=== PATIENT | female | born 1995 | race Caucasian/White ===

== ENCOUNTER 2017-07-05 14:33 | Emergency (ER) | payer BC, OTHER ==
[2017-07-05 15:15] VITALS: BP 127/84
--- NOTE | 2017-07-05 15:32 | UC ---
Complaint Female HPI - HPI Summary HPI Summary: Urinary frequency for about a week. Old rx for bactrim was taken for 6-7 days and it worked but then symptoms returned. She denies vaginal discharge, inflammation, or pain with intercourse. - History Of Current Complaint Chief Complaint: [facility] Stated Complaint: URINARY COMPLAINT Time Seen by Provider: 07/05/17 15:13 Hx Obtained From: Patient Hx Last Menstrual Period: 06/08/17 Onset/Duration: Gradual Onset, Lasting Days Timing: Constant, Lasting Days Severity Initially: Moderate Severity Currently: Moderate Pain Intensity: 0 Character: Cramping Aggravating Factor(s): Urination Alleviating Factor(s): Nothing Associated Signs And Symptoms: Positive: Negative - Allergies/Home Medications Allergies/Adverse Reactions: Allergies Allergy/AdvReac Type Severity Reaction Status Date / Time No Known Allergies Allergy Unverified 07/05/17 15:12 Home Medications: Home Medications Nuva Ring 1 VAGINAL MONTHLY 07/05/17 [History] PMH/Surg Hx/FS Hx/Imm Hx Previously Healthy: No - uti last time was 2 yrs ago. - Surgical History Surgical History: None - Family History Known Family History: Positive: Other - no gu related history. - Social History Alcohol Use: Occasionally Substance Use Type: None Smoking Status (MU): Never Smoked Tobacco Review of Systems Genitourinary: Frequency All Other Systems Reviewed And Are Negative: Yes Physical Exam Triage Information Reviewed: Yes Appearance: Well-Appearing, No Pain Distress, Well-Nourished Vital Signs: Initial Vital Signs Temp 98.7 F 07/05/17 15:07 Pulse 79 07/05/17 15:07 Resp 14 07/05/17 15:07 BP 127/84 07/05/17 15:07 Pulse Ox 100 07/05/17 15:07 Vital Signs Reviewed: Yes Eyes: Positive: Conjunctiva Clear ENT: Positive: Normal ENT inspection Neck: Positive: Supple, Nontender, No Lymphadenopathy Respiratory: Positive: Normal breath sounds, No respiratory distress, No accessory muscle use. Negative: Respiratory distress, Decreased breath sounds, Accessory muscle use, Crackles, Rhonchi, Stridor Cardiovascular: Positive: No Murmur, Pulses Normal Abdomen Description: Positive: Nontender, No Organomegaly, Soft. Negative: CVA Tenderness (R), CVA Tenderness (L), Distended, Guarding Musculoskeletal: Positive: ROM Intact Neurological: Positive: Alert, Muscle Tone Normal. Negative: Fatigued Psychological: Positive: Age Appropriate Behavior Skin: Negative: rashes Complaint Female Dx - Course Course Of Treatment: Abd exam totally benign. NO genital symptoms. No signs of PID, STD, vaginitis. - Differential Dx/Diagnosis Differential Diagnosis/HQI/PQRI: Endometriosis, Ovarian Cyst, Ovarian Torsion, Pelvic Inflammatory Disease, , Renal Colic, Retained Foreign Body, Sexually Transmitted Disease, Tubo-ovarian Abscess, Ureteral Stone, Urinary Tract Infection Provider Diagnoses: uti Discharge - Sign-Out/Discharge Documenting (check all that apply): Discharge - Discharge Plan Condition: Good Disposition: HOME Prescriptions: Nitrofurantoin Macrocrystals* [Macrodantin*] 100 mg PO BID #20 cap Patient Education Materials: Urinary Tract Infection in Women (ED) Referrals: Non Staff,Doctor [Primary Care Provider] - Additional Instructions: Return here for any worsening symptoms. - Billing Disposition and Condition Condition: GOOD Disposition: HOME
== END 2017-07-05 15:33 | disposition home or self-care (01) ==
LOC: UCCORT 14:33
DX: N39.0 Urinary tract infection, site not specified (principal); B96.20 Unspecified Escherichia coli [E. coli] as the cause of diseases classified elsewhere
CPT/HCPCS: 87077; 87086; 87186; 99202; G0463